=== PATIENT | female | born 1965 | race Caucasian/White ===

== ENCOUNTER 2017-07-18 12:14 | Emergency (ER) | payer BC, OTHER ==
[~2017-07-18] VITALS: Ht 157.5 cm; Wt 78.0 kg
[2017-07-18 12:21] VITALS: Ht 157.5 cm; Wt 78.0 kg
--- NOTE | 2017-07-18 16:06 | ERD ---
ER Documentation Chief Complaint Date/Time DATE: 07/18/17 TIME: 16:06 Chief Complaint cp since yeterday, rad back and arm HPI 51-year-old female with no significant previous medical history ambulatory to the emergency department complaining of chest pain. Yesterday experienced acute onset of mild, unprovoked, sharp and burning left-sided chest pain which radiated to the left shoulder and lasted throughout the day. She was able to sleep but then awoken to go to work and pain was still there and is persisted till now. No shortness breath, nausea, vomiting or diaphoresis. Denies abdominal pain or back pain. No relieving or exacerbating factors. No leg pain or swelling. No URI symptoms or cough. No fevers or chills. ROS All systems reviewed and are negative except as per history of present illness. Medications Home Meds Active Scripts Famotidine* (Pepcid*) 20 Mg Tablet, 20 MG PO BID for 7 Days, TAB Prov:BERTA ELIZALDE MD 07/18/17 Allergies Allergies: Coded Allergies: No Known Allergy (Unverified , 07/18/17) PMhx/Soc Reviewed in chart. As per HPI. History of Surgery: Yes Anesthesia Reaction: No () Hx Neurological Disorder: No Hx Respiratory Disorders: No Hx Cardiac Disorders: No Hx Psychiatric Problems: No Hx Miscellaneous Medical Probl: No Hx Alcohol Use: No Hx Substance Use: No Hx Tobacco Use: No FmHx Mother: Diabetes and hypertension. Father: Hypertension. No family history of sudden cardiac or stroke. Physical Exam Vitals Vital Signs Date Time Temp Pulse Resp B/P Pulse Ox O2 Delivery O2 Flow Rate FiO2 07/18/17 16:49 98.0 58 19 152/84 99 07/18/17 12:21 98.0 57 153/67 99 Physical Exam Const: Alert, no acute distress. Head: Atraumatic Eyes: Normal Conjunctiva ENT: Normal External Ears, Nose and Mouth. Neck: Full range of motion. Tender. No JVD. Resp: Sounds are equal and clear to auscultation bilaterally no rales rhonchi or wheezes. Cardio: Regular rate and rhythm, no murmurs Chest Wall: No tenderness or bruising. Abd: Soft, non tender, non distended. Normal bowel sounds Skin: No petechiae or rashes Back: No midline or flank tenderness Ext: No cyanosis, or edema no calf swelling, erythema or tenderness. Pulses 4 + in all extremities Neur: Awake and alert with no focal deficit observed. Psych: Normal Mood and Affect Result Diagram: 07/18/17 1615 07/18/17 1615 Results 24 hrs Laboratory Tests Test 07/18/17 16:15 White Blood Count 6.210^3/ul Red Blood Count 4.8010^6/ul Hemoglobin 14.2g/dl Hematocrit 41.7% Mean Corpuscular Volume 86.9fl Mean Corpuscular Hemoglobin 29.6pg Mean Corpuscular Hemoglobin Concent 34.1g/dl Red Cell Distribution Width 12.6% Platelet Count 78709^3/UL Mean Platelet Volume 11.0fl Neutrophils % 52.9% Lymphocytes % 34.7% Monocytes % 10.4% Eosinophils % 1.3% Basophils % 0.5% Nucleated Red Blood Cells % 0.0/100WBC Neutrophils # 3.310^3/ul Lymphocytes # 2.110^3/ul Monocytes # 0.610^3/ul Eosinophils # 0.110^3/ul Basophils # 0.010^3/ul Nucleated Red Blood Cells # 0.010^3/ul D-Dimer 393.19ng/ml D-Dimer Comment Sodium Level 142mmol/L Potassium Level 3.9mmol/L Chloride Level 103mmol/L Carbon Dioxide Level 32mmol/L Anion Gap 11 Blood Urea Nitrogen 19mg/dl Creatinine 0.81mg/dl Glucose Level 91mg/dl Calcium Level 8.8mg/dl Total Bilirubin 1.2mg/dl Direct Bilirubin 0.00mg/dl Indirect Bilirubin 1.2mg/dl Aspartate Amino Transf (AST/SGOT) 23IU/L Alanine Aminotransferase (ALT/SGPT) 44IU/L Alkaline Phosphatase 82IU/L Troponin I < 0.012ng/ml Total Protein 7.6g/dl Albumin 4.0g/dl Globulin 3.60g/dl Albumin/Globulin Ratio 1.11 Current Medications Medications (Trade) Dose Ordered Sig/Dinora Route PRN Reason Start Time Stop Time Status Last Admin Dose Admin Miscellaneous Medication (Gi Cocktail (2)) 40 ml ONCE ONCE PO 07/18/17 16:30 07/18/17 16:31 DC 07/18/17 16:43 EKG: TIME: 12:32. His bradycardia. Ventricular rate 55. Normal CO and QRS. Normal axis. No ectopy. EP Interpretation: This bradycardia otherwise normal ECG. IMAGING: Chest x-ray, portable. Cardiac silhouette is normal. No effusions or infiltrates. Costophrenic angles are clear. No abnormalities of the bony thorax. EP interpretation: Normal chest x-ray. Procedures/MDM DOCUMENTS REVIEWED: ED nurse, no prior records. REEXAMINATION/REEVALUATION: Time:17:00. Doing well. Pain resolved with GI cocktail. MEDICAL DECISION MAKIN-year-old female with no significant previous medical history ambulatory to the emergency department complaining of chest pain. The patient presents with chest pain and I considered pulmonary embolism , aortic dissection, pneumothorax among other diagnoses. D-Dimer negative. PERC negative Hence pulmonary embolism is unlikely.Evaluation for acute coronary syndrome was performed. The HEART score was utilized for risk stratification and found to be = 1. EKG and troponin are normal Based on this evaluation the patients risk of major adverse cardiac events is <1%. Symptoms resolved with GI cocktail and gastritis/GERD as a likely etiology. An element of anxiety is also possible. Patient's blood pressure was elevated (>120/80) but appears stable without evidence of hypertension emergency or urgency. The patient was counseled about the risks of hypertension. and urged to pursue outpatient monitoring and therapy. Shared decision making occurred with patient and the decision has been made to discharge the patient for outpatient evaluation and functional study within 72 hours. Counseled patient regarding diagnostic workup, diagnosis and need for followup. Understands to return to ED if symptoms recur, worsen or any other concerns. Departure Diagnosis: Primary Impression: Chest pain Chest pain type: unspecified Qualified Code: R07.9 - Chest pain, unspecified type Additional Impressions: GERD (gastroesophageal reflux disease) Esophagitis presence: esophagitis presence not specified Qualified Code: K21.9 - Gastroesophageal reflux disease, esophagitis presence not specified Hypertension Hypertension type: unspecified Qualified Code: I10 - Hypertension, unspecified type Condition: Stable (Improved) Patient Instructions: Chest Pain, Uncertain Cause BERTA ELIZALDE MD Jul 18, 2017 16:06 BERTA ELIZALDE MD Jul 18, 2017 16:06
[2017-07-18 16:25] LABS: BASOPHILS % 0.5 % (0.0-2.0); EOSINOPHILS # 0.1 10^3/ul (0.0-0.5); EOSINOPHILS % 1.3 % (0.0-7.0); HEMATOCRIT 41.7 % (37.0-47.0); HEMOGLOBIN 14.2 g/dl (12.0-16.0); LYMPHOCYTES # 2.1 10^3/ul (0.8-2.9); LYMPHOCYTES % 34.7 % (15.0-51.0); MEAN CORPUSCULAR HEMOGLOBIN 29.6 pg (29.0-33.0); MEAN CORPUSCULAR HGB CONC 34.1 g/dl (32.0-37.0); MEAN CORPUSCULAR VOLUME 86.9 fl (82.0-101.0); MONOCYTE # 0.6 10^3/ul (0.3-0.9); MONOCYTES % 10.4 % (0.0-11.0); NEUTROPHIL # 3.3 10^3/ul (1.6-7.5); NEUTROPHILS % 52.9 % (39.0-77.0); PLATELET COUNT 235 10^3/UL (140-415); RED CELL DISTRIBUTION WIDTH 12.6 % (11.5-14.5); WHITE BLOOD COUNT 6.2 10^3/ul (4.8-10.8)
--- NOTE | 2017-07-18 16:25 | RADRPT ---
PROCEDURE: XR Chest. CLINICAL INDICATION: Chest pain TECHNIQUE: Single frontal view of the chest was obtained COMPARISON: None FINDINGS: No pleural effusion or pneumothorax. No consolidation. Unremarkable cardiomediastinal silhouette. No acute osseous abnormality. IMPRESSION: No acute cardiopulmonary disease. RPTAT: EE Daria Gerber Physician Date Time Electronically viewed and signed by Daria Gerber Physician on 07/18/2017 16:24 /
[2017-07-18] MEDS ORDERED: LIDOCAINE/MYLANTA 40 ML BTL PO ONE (16:30)
[2017-07-18 16:42] LABS: ALANINE AMINOTRANSFERASE 44 IU/L (13-69); ALBUMIN/GLOBULIN RATIO 1.11; ALKALINE PHOSPHATASE 82 IU/L (42-121); ANION GAP 11 (8-16); ASPARTATE AMINO TRANSFERASE 23 IU/L (15-46); BILIRUBIN,INDIRECT 1.2 mg/dl (0-1.1); BILIRUBIN,TOTAL 1.2 mg/dl (0.2-1.3); BLOOD UREA NITROGEN 19 mg/dl (7-20); CALCIUM 8.8 mg/dl (8.4-10.2); CARBON DIOXIDE 32 mmol/L (21-31); CHLORIDE 103 mmol/L (97-110); CREATININE 0.81 mg/dl (0.44-1.00); GLUCOSE 91 mg/dl (70-220); POTASSIUM 3.9 mmol/L (3.5-5.1); SODIUM 142 mmol/L (135-144); TOTAL PROTEIN 7.6 g/dl (6.1-8.1)
[2017-07-18 16:45] LABS: D-DIMER 393.19 ng/ml (<460)
[2017-07-18 16:49] VITALS: BP 152/84; PULSE 58; RESP 19; TEMP 98
[2017-07-18 16:54] LABS: TROPONIN-I < 0.012 ng/ml (0.00-0.12)
[2017-07-18] MEDS ORDERED: FAMO-96 PO (17:20)
== END 2017-07-18 17:27 | disposition home or self-care (01) ==
LOC: E/R 12:14
DX: K21.9 Gastro-esophageal reflux disease without esophagitis (principal); I10 Essential (primary) hypertension
CPT/HCPCS: 36415; 71010; 80053; 84484; 85025; 85378; 93005

== ENCOUNTER 2017-11-16 05:37 | Emergency (ER) | END 2017-11-16 07:32 | disposition home or self-care (01) ==